=== PATIENT | male | born 1990 | race Hispanic/Latino ===

== ENCOUNTER 2020-04-06 08:52 | Emergency (ER) | payer SELFPAY ==
[2020-04-06] MEDS ORDERED: TETANUS & DIPHTHERIA TOX,ADULT 0.5 ML VIAL ONE (10:12)
[2020-04-06] MEDS ORDERED: BUPIVACAINE 0.5% PF 10 ML VIAL ONE (10:12)
[2020-04-06] MEDS ORDERED: LIDOCAINE 2% MPF 5 ML VIAL ONE (10:12)
[2020-04-06] MEDS ORDERED: LIDOCAINE 1% W/EPI 1:100,000 MDV 50 ML VIAL ONE (10:26)
--- NOTE | 2020-04-06 11:03 | ER ---
Nurse's Notes [facility] Name: Chris Cotton Age: 29 yrs Sex: Male : 1990 Arrival Date: 04/06/2020 Time: 08:54 Bed 24 Private MD: Diagnosis: Laceration without foreign body of lower leg-right Presentation: 04/06 09:01 Chief complaint: Patient states: fell off back of truck and right leg got caught up in iw a pallet and tore his right calf. 09:07 Coronavirus screen: At this time, the client does not indicate any symptoms associated iw with coronavirus-19. Ebola Screen: Patient negative for fever greater than or equal to 101.5 degrees Fahrenheit, and additional compatible Ebola Virus Disease symptoms Patient denies exposure to infectious person. Patient denies travel to an Ebola-affected area in the 21 days before illness onset. No symptoms or risks identified at this time. Risk Assessment: Do you want to hurt yourself or someone else? Patient reports no desire to harm self or others. Onset of symptoms was April 06, 2020. 09:07 Method Of Arrival: Wheelchair iw 09:07 Acuity: OLIVIER 3 iw 09:10 Complicating Factors: There are no complicating factors for this patient. Initial jl7 Sepsis Screen: Does the patient meet any 2 criteria? No. Patient's initial sepsis screen is negative. Does the patient have a suspected source of infection? No. Patient's initial sepsis screen is negative. Historical: - Allergies: 09:09 No Known Allergies; iw - Home Meds: 09:09 None [Active]; iw - PMHx: 09:09 None; iw - PSHx: 09:09 None; iw - Immunization history:: Adult Immunizations unknown. - Social history:: Smoking status: unknown. Screenin:00 Abuse screen: Denies threats or abuse. Denies injuries from another. Nutritional jl7 screening: No deficits noted. Tuberculosis screening: No symptoms or risk factors identified. Fall Risk None identified. Assessment: 10:00 General: Appears in no apparent distress. uncomfortable, Behavior is calm, cooperative, jl7 appropriate for age. Pain: Complains of pain in medial aspect of right calf Pain currently is 2 out of 10 on a pain scale. Neuro: Level of Consciousness is awake, alert, obeys commands, Oriented to person, place, time, situation. Cardiovascular: Patient's skin is warm and dry. Respiratory: Airway is patent Respiratory effort is even, unlabored, Respiratory pattern is regular, symmetrical. Derm: Skin is pink, warm \T\ dry. Musculoskeletal: Range of motion: intact in all extremities. Injury Description: Laceration sustained to medial aspect of right calf is 2.6 to 7.5 cm long, not bleeding, was sustained 30-60 minutes ago. is bleeding no active bleeding noted. Vital Signs: 09:07 BP 123 / 91; Pulse 89; Resp 16; Temp 98.2; Pulse Ox 100% on R/A; Weight 88.45 kg; iw Height 5 ft. 9 in. (175.26 cm); Pain 05/06; 09:07 Body Mass Index 28.80 (88.45 kg, 175.26 cm) iw ED Course: 08:54 Patient arrived in ED. as 09:08 Triage completed. iw 09:29 Koko Mcpherson PA is PHCP. cp 09:29 Sheng Mann MD is Attending Physician. cp 09:51 Delfina Lao RN is Primary Nurse. jl7 10:00 Patient has correct armband on for positive identification. Bed in low position. Call jl7 light in reach. Side rails up X 1. 10:00 Arm band placed on right wrist. jl7 10:25 Assist provider with laceration repair on medial aspect of right calf that was between jl7 2.6 to 7.5 cm using sutures. Set up tray. Performed by Koko WOLF Dressed with 4X4s, Patient tolerated well. 10:25 Wound care: cleaned wound to right calf with normal saline and chlorhexidine, patient dh3 tolerated well. 11:07 Wound care: Dressed wound to right calf with triple antibiotic, non adherent dressing, dh3 Kerlix, and an collette wrap. 11:13 Patient did not have IV access during this emergency room visit. 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 Exp: jl7 08/11/2021. Lot #: [id number]. } Route: IM; Site: right deltoid; 11:12 Follow up: Response: No adverse reaction jl7 10:22 Drug: Lidocaine-Epinephrine -1%: (1:100,000) 10 ml {Note: administered by mirella Barrios.} Volume: 20 ml; Route: Infiltration; 11:12 Follow up: Response: No adverse reaction jl7 10:22 Drug: Marcaine (0.5 %) 10 ml {Note: administered by PA. Sayda} Volume: 10 ml; jl7 Route: Infiltration; 11:12 Follow up: Response: No adverse reaction jl7 Outcome: 11:02 Discharge ordered by . cp 11:13 Discharged to home ambulatory, with crutches. jl7 11:13 Condition: stable 11:13 Discharge instructions given to patient, Instructed on discharge instructions, follow up and referral plans. medication usage, crutch walking, Demonstrated understanding of instructions, follow-up care, medications, crutch walking, Prescriptions given X 1. 11:13 Patient left the ED. jl7 Signatures: Sarah Alvarez Irene, RN Koko Chun PA PA cp Leal, Jahala, RN RN jl7 Chrissy Jennings 3 Corrections: (The following items were deleted from the chart) 10:25 10:00 Assist provider with laceration repair on medial aspect of right calf that was jl7 between 2.6 to 7.5 cm using sutures. Set up tray. Performed by Koko WOLF Dressed with 4X4s, Patient tolerated well. jl7
--- NOTE | 2020-04-06 11:03 | EDPHYS ---
Physician Documentation [facility] Name: Chris Cotton Age: 29 yrs Sex: Male : 1990 Arrival Date: 04/06/2020 Time: 08:54 Bed 24 Private MD: ED Physician Sheng Mann HPI: 04/06 09:40 This 29 yrs old Male presents to ER via Wheelchair with complaints of cp Laceration To Leg. 09:40 The patient has a laceration related to: working, edge of wooden pallet. The cp laceration(s) is(are) located on the posterior medial aspect right lower leg. Onset: The symptoms/episode began/occurred just prior to arrival. Associated signs and symptoms: Pertinent positives: heavy bleeding, Pertinent negatives: numbness distal to injury, suspected foreign body. Historical: - Allergies: 09:09 No Known Allergies; iw - Home Meds: 09:09 None [Active]; iw - PMHx: 09:09 None; iw - PSHx: 09:09 None; iw - Immunization history:: Adult Immunizations unknown. - Social history:: Smoking status: unknown. ROS: 09:45 Constitutional: Negative for fever, poor PO intake. cp 09:45 Cardiovascular: Negative for chest pain. 09:45 Respiratory: Negative for shortness of breath. 09:45 Skin: Positive for laceration(s), of the right calf. 09:45 Neuro: Negative for dizziness, syncope, weakness. 09:45 All other systems are negative. Exam: 09:50 Constitutional: The patient appears in no acute distress, alert, awake, well developed, cp well nourished. 09:50 Cardiovascular: Rate: normal. cp 09:50 Respiratory: the patient does not display signs of respiratory distress, Respirations: normal, no use of accessory muscles, no retractions, labored breathing, is not present. 09:50 Skin: injury, laceration(s), of the right posterior medial lower leg, that can be described as clean, no foreign body, linear, with moderate bleeding. 09:50 Neuro: Motor: moves all fours, Sensation: no obvious gross deficits. Vital Signs: 09:07 BP 123 / 91; Pulse 89; Resp 16; Temp 98.2; Pulse Ox 100% on R/A; Weight 88.45 kg; iw Height 5 ft. 9 in. (175.26 cm); Pain 05/06; 09:07 Body Mass Index 28.80 (88.45 kg, 175.26 cm) iw Laceration: 11:05 Wound Repair of 10cm ( 3.9in ) muscle penetrating laceration to posterior medial right cp lower leg. Distal neuro/vascular/tendon intact. Anesthesia: Local anesthetic administered with 15 mls of Lido/Marcaine. Wound prep: Moderate cleansing by me, Wound irrigation by me. Subcutaneous tissue closed with 1 4-0 Vicryl using running sutures and sterile technique. Skin closed with 14 1-0 Ingrid using staple gun. Dressed with 4x4's, pressure dressing. Patient tolerated well. MDM: 09:30 Patient medically screened. cp 11:00 Differential diagnosis: superficial laceration, tendon injury, vascular injury. cp 11:02 Data reviewed: vital signs, nurses notes, and as a result, I will discharge patient. cp 11:02 Counseling: I had a detailed discussion with the patient and/or guardian regarding: the cp historical points, exam findings, and any diagnostic results supporting the discharge/admit diagnosis, to return to the emergency department if symptoms worsen or persist or if there are any questions or concerns that arise at home. Response to treatment: the patient's symptoms have markedly improved after treatment, and as a result, I will discharge patient. 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 Exp: jl7 08/11/2021. Lot #: [id number]. } Route: IM; Site: right deltoid; 11:12 Follow up: Response: No adverse reaction Tyson 10:22 Drug: Lidocaine-Epinephrine -1%: (1:100,000) 10 ml {Note: administered by mirella Barrios} Volume: 20 ml; Route: Infiltration; 11:12 Follow up: Response: No adverse reaction Tyson 10:22 Drug: Marcaine (0.5 %) 10 ml {Note: administered by LUCIANO Alfredo.} Volume: 10 ml; jl7 Route: Infiltration; 11:12 Follow up: Response: No adverse reaction jl7 Disposition: 11:15 Chart complete. cp Disposition: 04/06/20 11:02 Discharged to Home. Impression: Laceration without foreign body of lower leg - right. - Condition is Stable. - Discharge Instructions: Laceration Care, Adult, Stitches, [place], or Adhesive Wound Closure. - Prescriptions for Keflex 500 mg Oral Capsule - take 1 capsule by ORAL route every 8 hours for 10 days; 30 capsule. - Medication Reconciliation Form, Thank You Letter, Antibiotic Education, Prescription Opioid Use form. - Follow up: Private Physician; When: 10 - 14 days; Reason: Staple/Suture removal. - Problem is new. - Symptoms have improved. Addendum: 04/08/2020 17:38 Co-signature as Attending Physician, Sheng Mann MD I agree with the assessment and k dr plan of care. Signatures: Sheng Mann MD MD kdr Aurelia Barahona RN RN iw Koko Mcpherson PA PA cp Delfina Lao RN RN jl7 Corrections: (The following items were deleted from the chart) 04/06 11:13 11:02 04/06/2020 11:02 Discharged to Home. Impression: Laceration without foreign body jl7 of lower leg - right. Condition is Stable. Forms are Medication Reconciliation Form, Thank You Letter, Antibiotic Education, Prescription Opioid Use. Follow up: Private Physician; When: 10 - 14 days; Reason: Staple/Suture removal. Problem is new. Symptoms have improved. cp 20:49 09:40 The laceration(s) is(are) located on the posterior medial; aspect right calf, cp cp
[2020-04-11 02:47] VITALS: BP 123/91; TEMP 98.2; O2SAT 100
== END 2020-04-06 11:13 | disposition home or self-care (01) ==
LOC: ER 08:52
PROC: 0JQN0ZZ Repair Right Lower Leg Subcutaneous Tissue and Fascia, Open Approach (ICD-10-PCS; principal; 2020-04-06)
DX: S81.811A Laceration without foreign body, right lower leg, initial encounter (principal); W45.8XXA Other foreign body or object entering through skin, initial encounter; Y93.9 Activity, unspecified; Y92.9 Unspecified place or not applicable; Z23 Encounter for immunization
CPT/HCPCS: 90471; 90714; 99284